=== PATIENT | male | born 1980 | race Caucasian/White ===

== ENCOUNTER 2019-01-10 13:09 | Outpatient (CLI) | payer OTHER, SELFPAY ==
[2019-01-10 13:24] VITALS: BMI 26.9
[2019-01-10 14:13] LABS: Hematocrit 26.6 % (42.0-52.0)
--- NOTE | 2019-01-10 15:30 | PC.NURSE ---
01/10/19 @ 1605. lab notified nursing staff that the pt had antibodies when the type and crossmatch was performed, blood would need to be ordered and obtained from [facility] in [place]. Informed ordering md and pt/family of this recent finding and it was determined that the pt was going to return in the am for the blood transfusion. iv left in place to sl after flushing with ns. iv site wrapped using gauze and coban.
== END 2019-01-10 14:30 | disposition home or self-care (01) ==
LOC: INF 13:12
PROVIDERS: PCP Nurse Practitioner Family; Visit Provider Nurse Practitioner Family
DX: D50.9 Iron deficiency anemia, unspecified (principal)
CPT/HCPCS: 85014; 85018; 86850; 86870

== ENCOUNTER 2019-01-11 09:15 | Outpatient (CLI) | payer OTHER, SELFPAY ==
[2019-01-11] VITALS (20 sets, daily range): BP systolic 112–139; BP diastolic 65–82; PULSE 68–97; RESP 16–88; TEMP 36.7–37.1; O2SAT 95–100; BMI 26.6
[2019-01-11 15:56] LABS: Hematocrit 30.8 % (42.0-52.0)
[2019-01-11 16:01] LABS: Hemoglobin 9.1 g/dL (14.1-18.0)
== END 2019-01-11 16:25 | disposition home or self-care (01) ==
LOC: INF 09:25
PROVIDERS: Visit Provider Nurse Practitioner Family
DX: D50.9 Iron deficiency anemia, unspecified (principal)
CPT/HCPCS: 36430; 85014; 85018; P9016

== ENCOUNTER 2019-01-15 22:53 | Observation (INO) ==
[2019-01-15 23:15] LABS: Basophils % 0.3 % (0.1-2.0); Eosinophils # 0.1 K/mm3 (0.0-0.4); Eosinophils % 0.6 % (0.1-12.0); Hematocrit 32.1 % (42.0-52.0); Hemoglobin 9.4 g/dL (14.1-18.0); Lymphocytes % 19.7 % (10-50); Mean Corpuscular HGB Conc 29.3 g/dL (31.8-35.4); Mean Corpuscular Hemoglobin 21.6 pg (27.0-31.2); Mean Corpuscular Volume 73.8 fl (80-94); Mean Platelet Volume 9.2 fl (7.4-10.4); Monocytes # 0.6 K/mm3 (0.1-1.0); Neutrophils # 7.6 K/mm3 (1.8-7.8); Neutrophils % 73.5 % (37.0-80.0); Platelet Count 259 K/mm3 (142-424); Red Blood Count 4.35 M/mm3 (4.60-6.20); Red Cell Distribution Width 19.8 % (11.5-17.5); White Blood Count 10.3 K/mm3 (4.8-10.8)
[2019-01-15 23:28] LABS: Anion Gap 14.6 mEq/L (5-15); Blood Urea Nitrogen 16 mg/dL (7-18); Carbon Dioxide 26 mmol/L (21.0-32.0); Chloride 104 mmol/L (98-107); Glucose 95 mg/dL (74-106); Potassium 3.6 mmoL/L (3.5-5.1); Sodium 141 mmol/L (136-145)
[2019-01-16 00:18] LABS: Albumin Level 4.3 gm/dL (3.4-5.0); Bilirubin,Direct 0.1 mg/dL (0.0-0.2); Bilirubin,Indirect 0.2 mg/dL (0.0-0.9); Bilirubin,Total 0.3 mg/dL (0.2-1.0); Total Protein,Serum 8.5 gm/dL (6.4-8.2)
--- NOTE | 2019-01-16 00:39 | Emergency Department Note ---
ED Disposition Clinical Impression: Cardiac arrhythmia Qualifiers: Arrhythmia type: unspecified cardiac arrhythmia Qualified Code(s): I49.9 - Cardiac arrhythmia, unspecified Anemia Qualifiers: Anemia type: unspecified type Qualified Code(s): D64.9 - Anemia, unspecified Disposition: Admitted as Observation Condition on Discharge: Good - Critical Care Critical Care Time: Yes Attestation: On 01/15/19, the high probability of a clinically significant, sudden or life threatening deterioration of the following system(s) required my full and direct attention, intervention and personal management. The time I documented below is in addition to time spent performing reported procedures but includes the following listed in this critical care notation. Vital system(s) involved:: Circulatory Failure My critical care processes included: Assessment & monitoring of V/S, Data Review/Interpretation, Coordinating Care, Medication Orders and management Medical Decision Making - Medical Records Medical records reviewed: Yes: I reviewed the patient's medical records. - Dimitrios Inquiry Pt receiving controlled substance: No Vital Signs: 01/15/19 22:57 01/15/19 23:10 01/15/19 23:24 Temperature 99.7 F H Temperature Source Oral Pulse Rate [Apical] 165 H 138 H Respiratory Rate 20 18 Blood Pressure [Right Arm] 147/99 H 142/108 H Blood Pressure Mean [Right Arm] 115 119 02 Sat by Pulse Oximetry 100 100 100 Oxygen Delivery Method Room Air Nasal Cannula Oxygen Flow Rate (LPM) 2 2 01/15/19 23:52 01/16/19 00:25 01/16/19 00:34 Temperature Temperature Source Pulse Rate [Apical] 135 H 129 H 124 H Respiratory Rate 18 18 20 Blood Pressure [Right Arm] 113/92 H 120/82 117/87 Blood Pressure Mean [Right Arm] 99 94 97 02 Sat by Pulse Oximetry 100 100 100 Oxygen Delivery Method Nasal Cannula Nasal Cannula Oxygen Flow Rate (LPM) 2 2 - Lab Data Lab results reviewed: Yes: I reviewed the patient's lab results. Lab Results 01/15/19 23:05: WBC 10.3, RBC 4.35 L, Hgb 9.4 L, Hct 32.1 L, MCV 73.8 L, MCH 21.6 L, MCHC 29.3 L, RDW 19.8 H, Plt Count 259, MPV 9.2, Neut % (Auto) 73.5, Lymph % (Auto) 19.7, Payne % (Auto) 6.0, Eos % (Auto) 0.6, Baso % (Auto) 0.3, Neut # (Auto) 7.6, Lymph # (Auto) 2.0, [place] # (Auto) 0.6, Eos # (Auto) 0.1, Baso # (Auto) 0.0 01/15/19 23:05: Sodium 141, Potassium 3.6, Chloride 104, Carbon Dioxide 26, Anion Gap 14.6, BUN 16, Creatinine 1.12, Estimated Creat Clear 101, Estimated GFR 73, Est GFR ( Amer) 88, Glucose 95, Calcium 9.0, Troponin I < 0.02 01/15/19 23:05: Magnesium 2.1, Total Bilirubin 0.3, Direct Bilirubin 0.1, Indirect Bilirubin 0.2, AST 40 H, ALT 31, Alkaline Phosphatase 67, Total Protein 8.5 H, Albumin 4.3 Result diagrams: 01/15/19 23:05 01/15/19 23:05 Orders (Tests/Meds): ED MEDICATIONS Generic Name Dose Route Start Last Admin Trade Name Freq PRN Reason Stop Dose Admin Sodium Chloride 1,000 mls @ 999 mls/hr 01/15/19 23:15 01/15/19 23:09 Sod Chlor 0.9% 1000ml Bag IV 01/16/19 00:15 999 mls/hr .[id number] OUSMANE Administration Amiodarone HCl 900 mg/ 518 mls @ 33.3 mls/hr 01/16/19 00:01 Dextrose IV 01/16/19 06:01 .[id number] OUSMANE Sodium Chloride 10 ml 01/15/19 23:06 Saline Flush 10ml Syringe IV 02/14/19 23:05 NEEDED PRN Maintain IV Site Discontinued Medications Generic Name Dose Route Start Last Admin Trade Name Freq PRN Reason Stop Dose Admin Amiodarone HCl 150 mg/ 103 mls @ 600 mls/hr 01/16/19 00:00 01/16/19 00:05 Dextrose IV 01/16/19 00:10 600 mls/hr ONCE ONE Administration Metoprolol Tartrate 5 mg 01/15/19 23:23 01/15/19 23:10 Metoprolol Tartrate 5mg/5ml Vial IV 01/15/19 23:24 5 mg ONCE ONE Administration Metoprolol Tartrate 5 mg 01/15/19 23:23 01/15/19 23:15 Metoprolol Tartrate 5mg/5ml Vial IV 01/15/19 23:24 5 mg ONCE ONE Administration Metoprolol Tartrate 5 mg 01/15/19 23:23 01/15/19 23:20 Metoprolol Tartrate 5mg/5ml Vial IV 01/15/19 23:24 5 mg ONCE ONE Administration Metoprolol Tartrate 5 mg 01/15/19 23:33 01/15/19 23:49 Metoprolol Tartrate 5mg/5ml Vial IV 01/15/19 23:34 5 mg ONCE ONE Administration Metoprolol Tartrate 5 mg 01/15/19 23:33 01/15/19 23:44 Metoprolol Tartrate 5mg/5ml Vial IV 01/15/19 23:34 5 mg ONCE ONE Administration Metoprolol Tartrate 5 mg 01/15/19 23:33 01/15/19 23:39 Metoprolol Tartrate 5mg/5ml Vial IV 01/15/19 23:34 5 mg ONCE ONE Administration ORDERS Category Date Time Status XR chest portable Stat Exams 01/15/19 23:06 Taken - Radiology Data #1 Image(s): Chest Image Reviewed: Yes I reviewed the patient's radiology image Preliminary Findings: Normal/NAD - ECG Data Tracing #1 Arrhythmias present: PSVT Conduction abnormalities present: LBBB ECG compared to prior tracings: this ECG reveals significant changes Tracing #2 Normal Sinus Rhythm: Yes Arrhythmias present: aflutter Conduction abnormalities present: LBBB - Physician Consults Physician Consulted: safia Reason -: Admission Additional Consult: ene Reason -: Pt condition Arrhythmia/Palpitations HPI - General Chief Complaint: Chest Pain Stated Complaint: chest pains earlier Time Seen by Provider: 01/15/19 23:00 Mode of Arrival: Ambulatory Source of Information: Patient, Spouse, Medical Record Limitations: No Limitations - History of Present Illness HPI narrative: fluttering feeling and no syncope or chest pain and felt weak - has arrthymia in 2016 but pt does not remember details MD complaint: rapid heart beat Onset (ago): hour(s) Duration: constant Severity: severe Arrhythmia history: other Associated symptoms: denies other symptoms - Related Data Home Medications Medication Instructions Recorded Confirmed Ferrous Sulfate [Iron] 325 mg PO TID 01/10/19 01/15/19 Allergies Allergy/AdvReac Type Severity Reaction Status Date / Time No Known Allergies Allergy Unverified 10/31/17 15:24 [facility] History - Hepatitis A Screen Drug use history?: No High risk sexual behaviors?: No History of sexually transmitted infection?: No Currently employed?: No Childcare worker?: No Do you have indoor plumbing?: No Do you have electricity?: Yes Attestation statement:: This patient has been screened for Hepatitis A risk factors. I have reviewed the patient's past medical history: Yes - Social History Smoking Status: Never smoker Tobacco Type: smokeless tobacco # Packs/Day (cigarettes): 0 Alcohol Intake: never Occupational Status: employed - Psychiatric History Expresses thoughts of harming self/others: None Suicide Plan Description: No Plan ROS Obtained: No All systems reviewed & no additional complaints - Constitutional Constitutional: Denies fever(s) - Eyes Eyes: Denies change in vision - ENT Ears, Nose, Mouth, and Throat: Denies sore throat - Cardiovascular Cardiovascular: Denies chest pain, Denies dyspnea, Reports rapid heart rate - Respiratory Respiratory: No cough - Gastrointestinal Gastrointestingal: Denies: abdominal pain - Genitourinary Female Genitourinary: Denies flank pain - Musculoskeletal Musculoskeletal: Denies back pain - Integumentary/Breasts Skin/Breast: Denies rash - Neurologic Neurologic: Denies abnormal speech, Denies confusion, Denies headache(s), Denies seizure-like activity Physical Exam - General General appearance: in no apparent distress - Head Head exam: normocephalic - Eye Eye exam: Present: PERRL, EOMI - ENT ENT exam: Present: mucous membranes moist - Neck Neck exam: Present: trachea midline - Respiratory Respiratory exam: Absent: respiratory distress - Cardiovascular Cardiovascular exam: Present: regular rate, tachycardia, +S3 - Abdominal Exam Abdominal exam: Present: soft - Extremities Exam Extremities exam: Absent: calf tenderness - Neurological Exam Neurological exam: Present: alert, CN II-XII intact - Skin Skin exam: Absent: rash
[2019-01-16 04:52] LABS: INR 1.06 (0.9-1.1); Prothrombin Time 10.9 seconds (9.4-11.8)
[2019-01-16 04:55] LABS: Basophils % 0.2 % (0.1-2.0); Eosinophils # 0.1 K/mm3 (0.0-0.4); Eosinophils % 0.6 % (0.1-12.0); Hematocrit 29.7 % (42.0-52.0); Lymphocytes # 1.5 K/mm3 (0.7-4.5); Lymphocytes % 18.9 % (10-50); Mean Corpuscular HGB Conc 28.2 g/dL (31.8-35.4); Mean Corpuscular Hemoglobin 21.1 pg (27.0-31.2); Mean Corpuscular Volume 74.8 fl (80-94); Mean Platelet Volume 8.8 fl (7.4-10.4); Monocytes # 0.3 K/mm3 (0.1-1.0); Monocytes % 3.7 % (1.7-9.3); Neutrophils # 6.2 K/mm3 (1.8-7.8); Neutrophils % 76.5 % (37.0-80.0); Platelet Count 221 K/mm3 (142-424); Red Blood Count 3.97 M/mm3 (4.60-6.20); Red Cell Distribution Width 19.7 % (11.5-17.5); White Blood Count 8.1 K/mm3 (4.8-10.8)
[2019-01-16 05:10] LABS: Hemoglobin 8.4 g/dL (14.1-18.0)
[2019-01-16 05:22] LABS: Anion Gap 13.6 mEq/L (5-15); Calcium 8.1 mg/dL (8.5-10.1); Potassium 3.6 mmoL/L (3.5-5.1)
--- NOTE | 2019-01-16 07:45 | Pharmacy Consult Notes ---
[facility] Pharmacy VTE Monitoring - Patient Demographics Admission date: 01/16/19 Report Date: 01/16/19 Time: 07:45 Allergies/Adverse Reactions: Patient Allergies No Known Allergies Allergy (Unverified 10/31/17 15:24) Height: 1.75 m Weight: 83.121 kg Patient Problems: Current Active Problems Anemia (Acute) Cardiac arrhythmia (Acute) - VTE Risk Labs: VTE Related Lab Results Hgb 8.4 g/dL (14.1-18.0) L D 01/16/19 04:30 Hct 29.7 % (42.0-52.0) L 01/16/19 04:30 Plt Count 221 K/mm3 (142-424) 01/16/19 04:30 PT 10.9 seconds (9.4-11.8) 01/16/19 04:30 INR 1.06 (0.9-1.1) 01/16/19 04:30 BUN 14 mg/dL (7-18) 01/16/19 04:30 Creatinine 0.96 mg/dL (0.70-1.30) 01/16/19 04:30 Estimated Creat Clear 120 mL/min (50-200) 01/16/19 04:30 Was VTE Risk Assessment Performed: Yes VTE Score: 2 VTE Risk Level: Low Risk - Prophylaxis VTE Prophylaxis Ordered?: Yes Types of VTE Prophylaxis: TEDS Knee High Location of Applied Device: Bilateral Lower Extremeties - VTE Diagnosis Confirmed Treatment or plan recommended: Continue Current Treatment
--- NOTE | 2019-01-16 08:42 | History & Physical Report ---
*Admission Date: 01/16/19 <Deonna Pierre - 01/16/19 08:51> *Chief complaint: heart palpitations, SOA <Deonna Pierre - 01/16/19 08:51> *History of present illness: Mr. Singleton is a 38-year-old male with only a significant medical history of iron deficiency anemia. He states approximately 3 years ago he presented to the emergency room with heart palpitations and was found to have an elevated heart rate and anemia. He states he received some blood and was placed on a medication for his heart rate and sent home. He took that medication for approximately 3 months and was then incarcerated. He states he never had a problem with anemia or his heart rate for the past few years. Once he got out of alf, he began seeing Char Samuels. He did have a low hemoglobin of 6 and had been taking some iron a few times a day at home. She ordered a blood transfusion which he had last Monday. After the blood transfusion, he began having a headache that worsened over the past few days. Yesterday he felt like a "butterfly was in his chest". He got hot and felt dizzy and presented to the emergency room. He states his heart rate was in the 160s. ER notes report atrial flutter on EKG as well as PSVT. He was given beta blockers and amiodarone in the ER and his rate decreased back down into the 70s and has remained stable all night. He states he feels much better and wants to go home. Cardiology has been consulted. His hemoglobin has dropped from 9.4 to 8.4. The patient states his primary care physician is unsure why he is anemic. He does have a remote history of iron deficiency anemia, but he says depending on what he eats, he sometimes has blood in his stool for weeks at a time. He has not yet been scheduled for a colonoscopy or EGD, but he was told he would need to see gastroenterology. His PCP also talked with him about seeing a terrazzo layer helper. <GabbyStara - 01/16/19 08:51> [facility] History Medical History: Reports:: Arrhythmia, Congestive Heart Failure, Hypertension Denies:: Cancer, Diabetes Mellitus Type 1, Diabetes Mellitus Type 2, MRSA <ConStar mossa - 01/16/19 08:51> *Have you ever received a pneumonia vaccine?: No <Deonna Pierre 01/16/19 08:51> *Have you received a flu vaccine this season?: No <Deonna Pierre 01/16/19 08:51> Other Medical History: Reports: Anemia, Other (blood in stool) <Deonna Pierre 01/16/19 08:51> Other Surgeries: Yes: Appendectomy, Hernia Repair <Deonna Pierre 01/16/19 08 :51> Amputation: No <Deonna Pierre 01/16/19 08:51> Fractures: Yes (RT WRIST AND NOSE) <Deonna Pierre 01/16/19 08:51> - *Social History Educational Level: Attended High School <Deonna Pierre 01/16/19 08:51> Smoking Status: Never smoker <Deonna Pierre 01/16/19 08:51> Tobacco Type: smokeless tobacco <Deonna Pierre 01/16/19 08:51> # Packs/Day (cigarettes): 0 <Deonna Pierre 01/16/19 08:51> Alcohol Intake: never <Deonna Pierre 01/16/19 08:51> *Occupational Status:: employed <Deonna Pierre 01/16/19 08:51> Housing: other <Deonna Pierre 01/16/19 08:51> Household Members: significant other, children <Deonna Pierre 01/16/19 08:51> *Travel in the last 8 weeks: None <Deonna Pierre 01/16/19 08:51> - Psychiatric History Expresses thoughts of harming self/others: None <Deonna Pierre 01/16/19 08:51> Suicide Plan Description: No Plan <Deonna Pierre 01/16/19 08:51> Family Hx:: Cancer, Heart Attack, Hyperlipidemia, Hypertension <Deonna Pierre 01/16/19 08:51> Review of Systems - Constitutional Reports weakness, Denies body ache(s), Denies chills <Deonna Pierre 01/16/19 08:51> - Eyes Denies blurry vision, Denies double vision <Deonna Pierre 01/16/19 08:51> - ENT Denies nasal congestion, Denies sore throat <Deonna Pierre 01/16/19 08:51> - *Cardiovascular Reports shortness of breath, Reports rapid, pounding, or irregular heartbeat, Denies chest pain <Deonna Pierre 01/16/19 08:51> - *Respiratory Reports shortness of breath, Denies cough <Deonna Pierre 01/16/19 08:51> - *Gastrointestinal Reports bright, red blood in stools (off and on), Denies abdominal pain, Denies loose stools, Denies nausea, Denies vomiting <Deonna Pierre 01/16/19 08:51> - *Genitourinary Denies difficulty urinating, Denies painful urination <Deonna Pierre 01/16/19 08:51> - *Musculoskeletal Denies joint pain, Denies body aches <Deonna Pierre 01/16/19 08:51> - *Neurologic Reports weakness, Denies abnormal speech, Denies confusion, Denies headache(s), Denies seizure-like activity, Denies dizziness <Deonna Pierre 01/16/19 08:51> Meds Home Medications Medication Instructions Recorded Confirmed Type Ferrous Sulfate [Iron] 325 mg PO TID 01/10/19 01/16/19 History <Alfred Tavera - 01/16/19 10:29> Allergies Allergy/AdvReac Type Severity Reaction Status Date / Time No Known Allergies Allergy Unverified 10/31/17 15:24 <Alfred Tavera - 01/16/19 10:29> Exam Vital signs and Labs for Last 24 Hours: Temp Pulse Resp BP Pulse Ox 98.2 F 69 18 118/66 96 01/16/19 01:20 01/16/19 06:16 01/16/19 01:20 01/16/19 06:16 01/16/19 06:16 Laboratory Results - last 24 hr 01/15/19 23:05: WBC 10.3, RBC 4.35 L, Hgb 9.4 L, Hct 32.1 L, MCV 73.8 L, MCH 21.6 L, MCHC 29.3 L, RDW 19.8 H, Plt Count 259, MPV 9.2, Neut % (Auto) 73.5, Lymph % (Auto) 19.7, [place] % (Auto) 6.0, Eos % (Auto) 0.6, Baso % (Auto) 0.3, Neut # (Auto) 7.6, Lymph # (Auto) 2.0, [place] # (Auto) 0.6, Eos # (Auto) 0.1, Baso # (Auto) 0.0 01/15/19 23:05: Sodium 141, Potassium 3.6, Chloride 104, Carbon Dioxide 26, Anion Gap 14.6, BUN 16, Creatinine 1.12, Estimated Creat Clear 101, Estimated GFR 73, Est GFR ( Amer) 88, Glucose 95, Calcium 9.0, Troponin I < 0.02 01/15/19 23:05: Magnesium 2.1, Total Bilirubin 0.3, Direct Bilirubin 0.1, Indirect Bilirubin 0.2, AST 40 H, ALT 31, Alkaline Phosphatase 67, Total Protein 8.5 H, Albumin 4.3 01/16/19 04:30: Troponin I < 0.02 01/16/19 04:30: WBC 8.1, RBC 3.97 L, Hgb 8.4 L D, Hct 29.7 L, MCV 74.8 L, MCH 21.1 L, MCHC 28.2 L, RDW 19.7 H, Plt Count 221, MPV 8.8, Neut % (Auto) 76.5, Lymph % (Auto) 18.9, [place] % (Auto) 3.7, Eos % (Auto) 0.6, Baso % (Auto) 0.2, Neut # (Auto) 6.2, Lymph # (Auto) 1.5, [place] # (Auto) 0.3, Eos # (Auto) 0.1, Baso # (Auto) 0.0 01/16/19 04:30: PT 10.9, INR 1.06 01/16/19 04:30: Sodium 141, Potassium 3.6, Chloride 106, Carbon Dioxide 25, Anion Gap 13.6, BUN 14, Creatinine 0.96, Estimated Creat Clear 120, Estimated GFR 87, Est GFR ( Amer) 105, Glucose 108 H, Calcium 8.1 L, Magnesium 2.0, Triglycerides 69, Cholesterol 134 L, LDL Cholesterol 93, VLDL Cholesterol 14, HDL Cholesterol 27, Cholesterol/HDL Ratio 5.0 H 01/16/19 07:14: Troponin I < 0.02 01/16/19 07:14: Retic Count (auto) 3.7 H 01/16/19 07:14: Ferritin 6 L <Alfred Tavera - 01/16/19 10:29> Temp Pulse Resp BP Pulse Ox 98.2 F 69 18 118/66 96 01/16/19 01:20 01/16/19 06:16 01/16/19 01:20 01/16/19 06:16 01/16/19 06:16 Laboratory Results - last 24 hr 01/15/19 23:05: WBC 10.3, RBC 4.35 L, Hgb 9.4 L, Hct 32.1 L, MCV 73.8 L, MCH 21.6 L, MCHC 29.3 L, RDW 19.8 H, Plt Count 259, MPV 9.2, Neut % (Auto) 73.5, Lymph % (Auto) 19.7, [place] % (Auto) 6.0, Eos % (Auto) 0.6, Baso % (Auto) 0.3, Neut # (Auto) 7.6, Lymph # (Auto) 2.0, [place] # (Auto) 0.6, Eos # (Auto) 0.1, Baso # (Auto) 0.0 01/15/19 23:05: Sodium 141, Potassium 3.6, Chloride 104, Carbon Dioxide 26, Anion Gap 14.6, BUN 16, Creatinine 1.12, Estimated Creat Clear 101, Estimated GFR 73, Est GFR ( Amer) 88, Glucose 95, Calcium 9.0, Troponin I < 0.02 01/15/19 23:05: Magnesium 2.1, Total Bilirubin 0.3, Direct Bilirubin 0.1, Indirect Bilirubin 0.2, AST 40 H, ALT 31, Alkaline Phosphatase 67, Total Protein 8.5 H, Albumin 4.3 01/16/19 04:30: Troponin I < 0.02 01/16/19 04:30: WBC 8.1, RBC 3.97 L, Hgb 8.4 L D, Hct 29.7 L, MCV 74.8 L, MCH 21.1 L, MCHC 28.2 L, RDW 19.7 H, Plt Count 221, MPV 8.8, Neut % (Auto) 76.5, Lymph % (Auto) 18.9, [place] % (Auto) 3.7, Eos % (Auto) 0.6, Baso % (Auto) 0.2, Neut # (Auto) 6.2, Lymph # (Auto) 1.5, [place] # (Auto) 0.3, Eos # (Auto) 0.1, Baso # (Auto) 0.0 01/16/19 04:30: PT 10.9, INR 1.06 01/16/19 04:30: Sodium 141, Potassium 3.6, Chloride 106, Carbon Dioxide 25, Anion Gap 13.6, BUN 14, Creatinine 0.96, Estimated Creat Clear 120, Estimated GFR 87, Est GFR ( Amer) 105, Glucose 108 H, Calcium 8.1 L, Magnesium 2.0, Triglycerides 69, Cholesterol 134 L, LDL Cholesterol 93, VLDL Cholesterol 14, HDL Cholesterol 27, Cholesterol/HDL Ratio 5.0 H 01/16/19 07:14: Troponin I < 0.02 <Deonna Pierre - 01/16/19 08:51> I & O for Last 24 hours: Intake & Output 01/13/19 01/14/19 01/15/19 01/16/19 11:59 11:59 11:59 11:59 Intake Total 1641 / 1641 Balance 1641 / 1641 Weight 183 lb 4 oz <Alfred Tavera - 01/16/19 10:29> Intake & Output 01/13/19 01/14/19 01/15/19 01/16/19 11:59 11:59 11:59 11:59 Intake Total 1641 / 1641 Balance 1641 / 1641 Weight 183 lb 4 oz <Deonna Pierre - 01/16/19 08:51> - Constitutional no acute distress <Deonna Pierre - 01/16/19 08:51> - *Routine HEENT Exam Head: Present: normocephalic <Deonna Pierre - 01/16/19 08:51> Eye: Present: EOMI, PERRL <Deonna Pierre - 01/16/19 08:51> ENT: Present: mucous membranes moist <Deonna Pierre - 01/16/19 08:51> - *Routine Neck Exam Present: supple. Absent: lymphadenopathy <Deonna Pierre 01/16/19 08:51> - *Routine Respiratory Exam Present: CTA bilaterally <[facility] 01/16/19 08:51> - *Routine Cardiovascular Exam Present: RRR <GabbyDeonna 01/16/19 08:51> - *Routine Abdominal Exam Present: soft, normoactive bowel sounds. Absent: tenderness <[facility] 01/16/19 08:51> - *Routine Extremities Exam Absent: cyanosis, clubbing, edema <Deonna Pierre 01/16/19 08:51> - *Routine Skin Exam Present: pallor <[facility] 01/16/19 08:51> - *Routine Neurological Exam Present: alert, oriented X3 <GabbyDeonna 01/16/19 08:51> H&P: Result - Impressions CXR - nothing acute <Star Pierrea 01/16/19 08:51> Assessment and Plan (1) Cardiac arrhythmia Current visit: Yes Status: Acute Qualifiers: Arrhythmia type: unspecified cardiac arrhythmia Qualified Code(s): I49.9 - Cardiac arrhythmia, unspecified Category: Medical Code(s): I49.9 - Cardiac arrhythmia, unspecified (2) Anemia Current visit: Yes Status: Acute Qualifiers: Anemia type: unspecified type Qualified Code(s): D64.9 - Anemia, unspec ified Category: Medical Code(s): D64.9 - Anemia, unspecified <Deonna Pierre 01/16/19 08:38> (1) Cardiac arrhythmia Current visit: Yes Status: Acute Qualifiers: Arrhythmia type: unspecified cardiac arrhythmia Qualified Code(s): I49.9 - Cardiac arrhythmia, unspecified Category: Medical Code(s): I49.9 - Cardiac arrhythmia, unspecified (2) Iron deficiency anemia Current visit: Yes Status: Acute Category: Medical Code(s): D50.9 - Iron deficiency anemia, unspecified (3) Hemorrhoids Current visit: Yes Status: Acute Category: Medical Code(s): K64.9 - Unspecified hemorrhoids <LiangAlfred carreno - 01/16/19 10:29> - Assessment and plan all Dx Assessment and Plan for all problems:: I have seen and evaluated the patient this morning and reviewed his chart notes from his admission in 2016. His presentation at that time was almost identical. He responded to treatment and was discharged home on metoprolol and iron supplement with the plan that he would follow-up as an outpatient with Dr. Leon to undergo EGD and colonoscopy. As per the above history, he was incarcerated for 6 months and he states after he got out of alf he did not seem to be symptomatic therefore did not follow-up until recently when he started seeing Char Samuels APRN again and was found to be profoundly anemic and she arranged for his blood transfusion last week. I cannot find where any outpatient anemia studies were repeated. In 2016, his iron studies were low and his vitamin B12 was borderline low. He is known to have a history of hemorrhoids and states they bleed frequently. He has had no significant abdominal pain, nausea, weight loss, night sweats, or fever. He presented last evening with a wide-complex tachycardia but otherwise was relatively asymptomatic. He converted in the ER with IV beta-beti and amiodarone and this morning states he feels well and is eager to go home. He has an appointment with Char Samuels APRN tomorrow to follow-up on his anemia and states that she has plans to arrange for EGD and colonoscopy. I have asked our nursing specialist to see him today and also plan to repeat his H&H at noon and order additional anemia studies. If cardiology has no further plans for inpatient workup and his H&H is stable, he may be able to discharge later today and follow-up with Char Samuels APRN tomorrow. <Alfred Tavera - 01/16/19 10:29> Cardiology has been consulted. Will likely need more blood today. Patient will need to see GI as well as hematology. <Deonna Pierre - 01/16/19 08:51>
--- NOTE | 2019-01-16 11:31 | Consult Report ---
History of Present Illness Consult date: 01/16/19 (@ 3026) Requesting physician: Alfred Tavera Chief complaint: Racing heart History of present illness: Is a 38-year-old gentleman who was admitted to the hospital with anemia and cardiac arrhythmia. The patient states that he was at home yesterday when he had sudden onset of feeling like he had a butterfly in his chest. The patient states that he got really hot and flushed and felt really dizzy. He states that his heart rate was around 160 beats a minute and he decided to come into the emergency department because he had had issues like this in the past where his heart rate got really high and had to be treated with medications. The patient states approximately 3 years ago he presented to the emergency department with the same complaints and was started on a medication that he took for 3 months an d then stop the medication because he was incarcerated. He states that he was evaluated by Char Samuels once he got out of group home and his hemoglobin was 6. He was given a blood transfusion and after his blood transfusion he began to have headache which is been worsening. The patient came into the emergency department once he had the sudden onset of racing of the heart and feeling like he had butterflies in his chest. He was found to be in what appears to be atrial flutter with aberrancy. The patient was given an amiodarone load and started on an amiodarone drip and he was also treated with 15 mg of IV metoprolol twice. The patient's heart rate decreased back to the 70s and remains in sinus rhythm this morning with a rate of 64. He denies any chest pain or pressure. He denies any shortness of breath, edema or palpitations this morning. He denies any fever, chills, nausea, vomiting, diarrhea, PND or orthopnea. [facility] History I have reviewed the patient's past medical history: Yes Medical History: Reports:: Arrhythmia, Congestive Heart Failure, Hypertension Denies:: Cancer, Diabetes Mellitus Type 1, Diabetes Mellitus Type 2, MRSA *Have you ever received a pneumonia vaccine?: No *Have you received a flu vaccine this season?: No Other Medical History: Reports: Anemia, Thyroid Disease, Other (blood in stool) Other Surgeries: Yes: Appendectomy, Cancer Surgery, Colonoscopy, Hernia Repair Amputation: No Fractures: Yes (RT WRIST AND NOSE) - *Social History Educational Level: Attended High School Smoking Status: Never smoker Tobacco Type: smokeless tobacco # Packs/Day (cigarettes): 0 Alcohol Intake: never *Occupational Status:: employed Housing: other Household Members: significant other, children *Travel in the last 8 weeks: None - Psychiatric History Expresses thoughts of harming self/others: None Suicide Plan Description: No Plan Family Hx:: Cancer, Heart Attack, Hyperlipidemia, Hypertension Meds Home Medications Medication Instructions Recorded Confirmed Type Ferrous Sulfate [Iron] 325 mg PO TID 01/10/19 01/16/19 History Allergies Allergy/AdvReac Type Severity Reaction Status Date / Time No Known Allergies Allergy Unverified 10/31/17 15:24 Review of Systems - Review of Systems Review of systems:: pertinent systems reviewed and negative unless documented below - *Cardiovascular Reports lightheadedness, Reports rapid, pounding, or irregular heartbeat - *Neurologic Reports weakness, Denies abnormal speech, Denies confusion, Denies headache(s), Denies seizure-like activity, Denies dizziness - Endocrine Reports flushing Exam Vital signs and Labs for Last 24 Hours: Temp Pulse Resp BP Pulse Ox 98.2 F 69 18 118/66 96 01/16/19 01:20 01/16/19 06:16 01/16/19 01:20 01/16/19 06:16 01/16/19 06:16 Laboratory Results - last 24 hr 01/15/19 23:05: WBC 10.3, RBC 4.35 L, Hgb 9.4 L, Hct 32.1 L, MCV 73.8 L, MCH 21.6 L, MCHC 29.3 L, RDW 19.8 H, Plt Count 259, MPV 9.2, Neut % (Auto) 73.5, Lymph % (Auto) 19.7, [place] % (Auto) 6.0, Eos % (Auto) 0.6, Baso % (Auto) 0.3, Neut # (Auto) 7.6, Lymph # (Auto) 2.0, [place] # (Auto) 0.6, Eos # (Auto) 0.1, Baso # (Auto) 0.0 01/15/19 23:05: Sodium 141, Potassium 3.6, Chloride 104, Carbon Dioxide 26, Anion Gap 14.6, BUN 16, Creatinine 1.12, Estimated Creat Clear 101, Estimated GFR 73, Est GFR ( Amer) 88, Glucose 95, Calcium 9.0, Troponin I < 0.02 01/15/19 23:05: Magnesium 2.1, Total Bilirubin 0.3, Direct Bilirubin 0.1, Indirect Bilirubin 0.2, AST 40 H, ALT 31, Alkaline Phosphatase 67, Total Protein 8.5 H, Albumin 4.3 01/16/19 04:30: Troponin I < 0.02 01/16/19 04:30: WBC 8.1, RBC 3.97 L, Hgb 8.4 L D, Hct 29.7 L, MCV 74.8 L, MCH 21.1 L, MCHC 28.2 L, RDW 19.7 H, Plt Count 221, MPV 8.8, Neut % (Auto) 76.5, Lymph % (Auto) 18.9, [place] % (Auto) 3.7, Eos % (Auto) 0.6, Baso % (Auto) 0.2, Neut # (Auto) 6.2, Lymph # (Auto) 1.5, [place] # (Auto) 0.3, Eos # (Auto) 0.1, Baso # (Auto) 0.0 01/16/19 04:30: PT 10.9, INR 1.06 01/16/19 04:30: Sodium 141, Potassium 3.6, Chloride 106, Carbon Dioxide 25, Anion Gap 13.6, BUN 14, Creatinine 0.96, Estimated Creat Clear 120, Estimated GFR 87, Est GFR ( Amer) 105, Glucose 108 H, Calcium 8.1 L, Magnesium 2.0, Triglycerides 69, Cholesterol 134 L, LDL Cholesterol 93, VLDL Cholesterol 14, HDL Cholesterol 27, Cholesterol/HDL Ratio 5.0 H 01/16/19 07:14: Troponin I < 0.02 01/16/19 07:14: Retic Count (auto) 3.7 H 01/16/19 07:14: Ferritin 6 L I & O for Last 24 hours: Intake & Output 01/13/19 01/14/19 01/15/19 01/16/19 23:59 23:59 23:59 23:59 Intake Total 1641 / 1641 Balance 1641 / 1641 Weight 180 lb 183 lb 4 oz Narrative: EKG shows atrial flutter with aberrancy with a heart rate of 165. His telemetry strip this morning shows sinus rhythm with a rate of 64. - Constitutional no acute distress, average body habitus - *Routine HEENT Exam Head: Present: normocephalic, atraumatic Eye: Present: EOMI, PERRL ENT: Present: mucous membranes moist - *Routine Neck Exam Present: supple, full ROM. Absent: JVD, carotid bruit, lymphadenopathy - *Routine Respiratory Exam Present: CTA bilaterally - *Routine Cardiovascular Exam Present: RRR, Normal S1, Normal S2. Absent: murmur, gallop - *Routine Abdominal Exam Present: soft, normoactive bowel sounds. Absent: tenderness - *Routine Extremities Exam Present: full ROM, pulses intact. Absent: cyanosis, clubbing, edema - *Routine Skin Exam Present: intact, warm. Absent: erythema, rash - *Routine Neurological Exam Present: alert, oriented X3, CN II-XII intact. Absent: sensory deficit, motor deficit - Routine Psychiatric Exam Present: normal affect, normal thought process - Detailed Eye Exam Eyelids: Left normal inspection Assessment and Plan (1) Atrial flutter Current visit: Yes Status: Acute Category: Medical Code(s): I48.92 - Unspecified atrial flutter (2) Cardiac arrhythmia Current visit: Yes Status: Acute Qualifiers: Arrhythmia type: unspecified cardiac arrhythmia Qualified Code(s): I49.9 - Cardiac arrhythmia, unspecified Category: Medical Code(s): I49.9 - Cardiac arrhythmia, unspecified (3) Iron deficiency anemia Current visit: Yes Status: Acute Category: Medical Code(s): D50.9 - Iron deficiency anemia, unspecified (4) Hemorrhoids Current visit: Yes Status: Acute Category: Medical Code(s): K64.9 - Unspecified hemorrhoids - Assessment and plan all Dx Assessment and Plan for all problems:: Plan: 1. The patient was admitted to the hospital after having an episode where his heart was racing and felt like butterflies were in his chest. He came into the emergency department and was found to have what appears to be atrial flutter with a Quick C. The patient was treated with IV amiodarone and metoprolol. He was started on amiodarone drip. He converted to sinus rhythm and has remained rate controlled since that time. 2. The patient will need to be on a medication for rate control. We will start him on Toprol-XL 100 mg daily. We will discontinue his amiodarone drip today. 3. The patient will need an electrophysiology study to have radiofrequency ablation for his atrial flutter. Dr. Covington has contacted Dr. Brown who is willing to see the patient on an outpatient basis. We will set up this referral for the patient on an outpatient basis. 4. His blood pressure is well controlled. 5. His LDL goal is less than 100. 6. Echocardiogram to evaluate LV function. 7. As long as the patient tolerates the metoprolol and his ejection fraction is normal on echocardiogram, from a cardiovascular standpoint he will be stable for discharge home today. 8. Further recommendations will be made once the patient's echocardiogram is reviewed. Thank you for the opportunity to help participate in the care of this patient.
[2019-01-16 12:23] LABS: Hematocrit 30.1 % (42.0-52.0); Hemoglobin 8.5 g/dL (14.1-18.0)
--- NOTE | 2019-01-16 21:34 | Discharge Summary ---
General - General Admission date:: 01/16/19 Discharge date: 01/16/19 HPI HPI: Mr. Singleton is a 38-year-old male with only a significant medical history of iron deficiency anemia. He states approximately 3 years ago he presented to the emergency room with heart palpitations and was found to have an elevated heart rate and anemia. He states he received some blood and was placed on a medication for his heart rate and sent home. He took that medication for approximately 3 months and was then incarcerated. He states he never had a problem with anemia or his heart rate for the past few years. Once [facility], he began seeing Char Samuels. He did have a low hemoglobin of 6 and had been taking some iron a few times a day at home. She ordered a blood transfusion which he had last Monday. After the blood transfusion, he began having a headache that worsened over the past few days. Yesterday he felt like a "butterfly was in his chest". He got hot and felt dizzy and presented to the emergency room. He states his heart rate was in the 160s. ER notes report atrial flutter on EKG as well as PSVT. He was given beta blockers and amiodarone in the ER and his rate decreased back down into the 70s and has remained stable all night. He states he feels much better and wants to go home. Cardiology has been consulted. His hemoglobin has dropped from 9.4 to 8.4. The patient states his primary care physician is unsure why he is anemic. He does have a remote history of iron deficiency anemia, but he says depending on what he eats, he sometimes has blood in his stool for weeks at a time. He has not yet been scheduled for a colonoscopy or EGD, but he was told he would need to see gastroenterology. His PCP also talked with him about seeing a ore dressing engineer. Hospital Course Hospital Course: The patient's chest x-ray showed nothing acute. Upon reviewing his admission from 2015, his presentation was almost identical. He was given a blood transfusion and discharged home on metoprolol and iron supplementation with the plan that he would follow-up as an outpatient with Dr. Leon and undergo EGD and colonoscopy. He was then incarcerated and states after he got out of [facility] he did not seem to be symptomatic therefore he did not follow-up until recently when he started seeing [facility] Samuels and was found to be profoundly anemic. There were no outpatient anemia studies done that can be found. In the 2016 studies his iron and B12 were both low. Anemia studies were ordered. The patient did convert to normal sinus rhythm in the ER with an IV beta-beti and amiodarone and wished to be discharged home. His H&H did drop from 9.4-8.4. He had another H&H checked and it was stable. He was seen by cardiology and they felt he could be discharged home on 100 mg of metoprolol and will need to follow-up with an nurse staff. They were going to arrange a referral. The patient was stable to be discharged home on the metoprolol and will need to continue his iron supplement. He will follow up with Char Samuels tomorrow and will also need appointments made with gastroenterology and hematology. Objective Vital signs: Temp Pulse Resp BP Pulse Ox 98.2 F 60 20 109/80 L 100 01/16/19 01:20 01/16/19 12:00 01/16/19 10:00 01/16/19 10:00 01/16/19 10:00 Narrative: - Constitutional no acute distress - *Routine HEENT Exam Head: Present: normocephalic Eye: Present: EOMI, PERRL ENT: Present: mucous membranes moist - *Routine Neck Exam Present: supple. Absent: lymphadenopathy - *Routine Respiratory Exam Present: CTA bilaterally - *Routine Cardiovascular Exam Present: RRR - *Routine Abdominal Exam Present: soft, normoactive bowel sounds. Absent: tenderness - *Routine Extremities Exam Absent: cyanosis, clubbing, edema - *Routine Skin Exam Present: pallor - *Routine Neurological Exam Present: alert, oriented X3 Results Labs on day of discharge: Labs from last 24 hours 01/16/19 01/16/19 01/16/19 12:10 07:14 07:14 WBC RBC Hgb 8.5 L Hct 30.1 L MCV MCH MCHC RDW Plt Count MPV Neut % (Auto) Lymph % (Auto) [place] % (Auto) Eos % (Auto) Baso % (Auto) Neut # (Auto) Lymph # (Auto) [place] # (Auto) Eos # (Auto) Baso # (Auto) Retic Count (auto) 3.7 H PT INR Sodium Potassium Chloride Carbon Dioxide Anion Gap BUN Creatinine Estimated Creat Clear Estimated GFR Est GFR ( Amer) Glucose Calcium Magnesium Ferritin 6 L Total Bilirubin Direct Bilirubin Indirect Bilirubin AST ALT Alkaline Phosphatase Troponin I Total Protein Albumin Triglycerides Cholesterol LDL Cholesterol VLDL Cholesterol HDL Cholesterol Cholesterol/HDL Ratio 01/16/19 01/16/19 01/16/19 07:14 04:30 04:30 WBC RBC Hgb Hct MCV MCH MCHC RDW Plt Count MPV Neut % (Auto) Lymph % (Auto) [place] % (Auto) Eos % (Auto) Baso % (Auto) Neut # (Auto) Lymph # (Auto) [place] # (Auto) Eos # (Auto) Baso # (Auto) Retic Count (auto) PT 10.9 INR 1.06 Sodium 141 Potassium 3.6 Chloride 106 Carbon Dioxide 25 Anion Gap 13.6 BUN 14 Creatinine 0.96 Estimated Creat Clear 120 Estimated GFR 87 Est GFR ( Amer) 105 Glucose 108 H Calcium 8.1 L Magnesium 2.0 Ferritin Total Bilirubin Direct Bilirubin Indirect Bilirubin AST ALT Alkaline Phosphatase Troponin I < 0.02 Total Protein Albumin Triglycerides 69 Cholesterol 134 L LDL Cholesterol 93 VLDL Cholesterol 14 HDL Cholesterol 27 Cholesterol/HDL Ratio 5.0 H 01/16/19 01/16/19 01/15/19 04:30 04:30 23:05 WBC 8.1 RBC 3.97 L Hgb 8.4 L D Hct 29.7 L MCV 74.8 L MCH 21.1 L MCHC 28.2 L RDW 19.7 H Plt Count 221 MPV 8.8 Neut % (Auto) 76.5 Lymph % (Auto) 18.9 [place] % (Auto) 3.7 Eos % (Auto) 0.6 Baso % (Auto) 0.2 Neut # (Auto) 6.2 Lymph # (Auto) 1.5 [place] # (Auto) 0.3 Eos # (Auto) 0.1 Baso # (Auto) 0.0 Retic Count (auto) PT INR Sodium Potassium Chloride Carbon Dioxide Anion Gap BUN Creatinine Estimated Creat Clear Estimated GFR Est GFR ( Amer) Glucose Calcium Magnesium 2.1 Ferritin Total Bilirubin 0.3 Direct Bilirubin 0.1 Indirect Bilirubin 0.2 AST 40 H ALT 31 Alkaline Phosphatase 67 Troponin I < 0.02 Total Protein 8.5 H Albumin 4.3 Triglycerides Cholesterol LDL Cholesterol VLDL Cholesterol HDL Cholesterol Cholesterol/HDL Ratio 01/15/19 01/15/19 23:05 23:05 WBC 10.3 RBC 4.35 L Hgb 9.4 L Hct 32.1 L MCV 73.8 L MCH 21.6 L MCHC 29.3 L RDW 19.8 H Plt Count 259 MPV 9.2 Neut % (Auto) 73.5 Lymph % (Auto) 19.7 [place] % (Auto) 6.0 Eos % (Auto) 0.6 Baso % (Auto) 0.3 Neut # (Auto) 7.6 Lymph # (Auto) 2.0 [place] # (Auto) 0.6 Eos # (Auto) 0.1 Baso # (Auto) 0.0 Retic Count (auto) PT INR Sodium 141 Potassium 3.6 Chloride 104 Carbon Dioxide 26 Anion Gap 14.6 BUN 16 Creatinine 1.12 Estimated Creat Clear 101 Estimated GFR 73 Est GFR ( Amer) 88 Glucose 95 Calcium 9.0 Magnesium Ferritin Total Bilirubin Direct Bilirubin Indirect Bilirubin AST ALT Alkaline Phosphatase Troponin I < 0.02 Total Protein Albumin Triglycerides Cholesterol LDL Cholesterol VLDL Cholesterol HDL Cholesterol Cholesterol/HDL Ratio DS: Diagnosis - Discharge Diagnosis (1) Atrial flutter Status: Acute (2) Cardiac arrhythmia Status: Acute (3) Iron deficiency anemia Status: Acute (4) Hemorrhoids Status: Acute Discharge Plan - Patient Discharge Instructions ACTIVITY: Continue current activity DIET: continue same diet Patient Instructions: Arrhythmias, Echocardiogram, Anemia, DI for Arrhythmias - Follow up Plan Follow up with: Char Samuels APRN [Primary Care Provider] - 01/17/19 Disposition: Home, Self-Nursing Home Medications: Home Medications Medication Instructions Recorded Confirmed Type Ferrous Sulfate [Iron] 325 mg PO TID 01/10/19 01/16/19 History Metoprolol Succinate [Toprol XL 100 mg PO DAILY #30 tab.er.24h 01/16/19 Rx 100mg tablet] Prescriptions/Medication Reconciliation: New Metoprolol Succinate [Toprol XL 100mg tablet] 100 mg PO DAILY #30 tab.er.24h Continue Ferrous Sulfate [Iron] 325 mg PO TID
--- NOTE | 2019-01-17 09:33 | Cardiology Report ---
PROCEDURE: 2-D M-mode and color Doppler study INDICATIONS FOR THE TEST: Chest pain COPD Heart Murmur Tobacco Smoking Palpitations Fatigue Syncope Edema Hypertension Diabetes Mellitus Rheumatic Fever SOB GERMAN Obesity Hyperlipidemia Family History HD Additional History SVT, SVT, AFLUTTER PATIENT INFORMATION HEIGHT: 67 WEIGHT:180 GENDER: Male B/P:117/87 2-D/M-MODE INTERPRETATION: 2-D MEASUREMENTS OBSERVED VALUES IN CMS Right Ventricular Dimension (RVDd) 1.5 Interventricular Septum (Thickness)(IVsd) 1.0 Left Ventricular Internal Dimensions(LVIDd) 5.7 Left Ventricular Posterior Wall (Thickness)(LVPWd) 0.5 Aortic Root 2.9 Aortic Cusp Separation 2.2 Left Atrial Dimensions (LAD) 4.0 2D 1. Left atrium is normal size, left ventricle is normal size, there is no concentric left ventricular hypertrophy, visually estimated ejection fraction 55% with no regional wall motion abnormality. 2. The right atrium and right ventricle are normal size and contractility. 3. The aortic valve is minimally thickened and fibrosed. 4. The mitral and tricuspid valve are grossly normal. 5. The pulmonic valve is poorly visualized. 6. No significant pericardial effusion noted. DOPPLER INTERROGATION: Doppler interrogation of the aortic, mitral and tricuspid valvular presence of mild aortic, mild mitral and tricuspid regurgitation, tricuspid regurgitation jet velocity is inadequate for calculation of the right ventricular systolic pressure, diastolic parameters are within normal range. CONCLUSION: 1. Normal left ventricular size, preserved left ventricular systolic function, visually estimated ejection fraction of 55% with no regional wall motion abnormality, diastolic parameters are within normal range. 2. Mild aortic, mild mitral and tricuspid regurgitation 3. No significant pericardial effusion noted.
[2019-01-19 10:09] LABS: Folate 8.2 ng/mL (>3.0)
== END 2019-01-16 13:45 | disposition home or self-care (01) ==
LOC: 2ND 22:53 → ER 22:53 → 2ND 01-16 01:12
PROVIDERS: ADMIT Family Medicine; ATTEND Family Medicine
CPT/HCPCS: 36415; 71010; 71045; 80048; 80061; 80076; 82607; 82652; 82728; 82746; 83540; 83550; 83735; 84484; 85014; 85018; 85025; 85044; 85610; 93005; 93306; 96365; 96367; 96375; 96376; 99285; G0378; J0282

== ENCOUNTER 2019-01-25 12:00 | Outpatient (CLI) | payer OTHER, SELFPAY ==
[2019-01-25 12:12] VITALS: BMI 26.9
[2019-01-25 12:35] VITALS: BP 115/73; PULSE 63; RESP 18; O2SAT 100
[2019-01-25 13:10] VITALS: BP 115/81; PULSE 60; RESP 18
== END 2019-01-25 13:14 | disposition home or self-care (01) ==
LOC: INF 12:08
PROVIDERS: Visit Provider Nurse Practitioner Family
DX: D50.9 Iron deficiency anemia, unspecified (principal)
CPT/HCPCS: 96365; J1439

== ENCOUNTER 2019-02-01 09:31 | Outpatient (CLI) | payer OTHER, SELFPAY ==
[2019-02-01 10:00] VITALS: BP 119/78; PULSE 66; RESP 18
[2019-02-01 10:30] VITALS: BP 117/73; PULSE 63; RESP 18
== END 2019-02-01 10:40 | disposition home or self-care (01) ==
LOC: INF 09:32
PROVIDERS: Visit Provider Nurse Practitioner Family
DX: D50.9 Iron deficiency anemia, unspecified (principal)
CPT/HCPCS: 96365; J1439